=== PATIENT | male | born 1940 | race Asian ===

== ENCOUNTER → 2023-11-19 10:24 | Outpatient (REF) | payer OTHER, SELFPAY | LOC: RCS 10:24 | PROVIDERS: ATTENDING PHYSICIAN Internal Medicine Cardiovascular Disease; FAMILY PHYSICIAN Family Medicine | DX: I35.0 Nonrheumatic aortic (valve) stenosis (principal) | CPT/HCPCS: 93306 ==

== ENCOUNTER → 2023-12-17 06:35 | Outpatient (REF) | payer OTHER, SELFPAY | LOC: RAD 06:35 | PROVIDERS: ATTENDING PHYSICIAN Internal Medicine Gastroenterology; FAMILY PHYSICIAN Family Medicine | DX: K75.81 Nonalcoholic steatohepatitis (NASH) (principal); K74.60 Unspecified cirrhosis of liver | CPT/HCPCS: 76700; 93975 ==

== ENCOUNTER → 2023-12-21 09:15 | Outpatient (REF) | payer OTHER, SELFPAY | LOC: RAD 09:15 | PROVIDERS: ATTENDING PHYSICIAN Family Medicine | DX: M81.0 Age-related osteoporosis without current pathological fracture (principal) | CPT/HCPCS: 77080 ==

== ENCOUNTER → 2024-06-05 07:29 | Outpatient (REF) | payer OTHER, SELFPAY | LOC: RAD 07:29 | PROVIDERS: ATTENDING PHYSICIAN Internal Medicine Gastroenterology; FAMILY PHYSICIAN Family Medicine | DX: K74.69 Other cirrhosis of liver (principal); N18.31 Chronic kidney disease, stage 3a | CPT/HCPCS: 76700; 76775; 93975 ==

== ENCOUNTER → 2024-12-01 09:55 | Outpatient (REF) | payer OTHER, SELFPAY | LOC: RCS 09:55 | PROVIDERS: ATTENDING PHYSICIAN Internal Medicine Cardiovascular Disease; FAMILY PHYSICIAN Family Medicine | DX: I35.0 Nonrheumatic aortic (valve) stenosis (principal) | CPT/HCPCS: 93306 ==

== ENCOUNTER → 2024-12-23 06:36 | Outpatient (REF) | payer OTHER, SELFPAY | LOC: RAD 06:36 | PROVIDERS: ATTENDING PHYSICIAN Internal Medicine Gastroenterology; FAMILY PHYSICIAN Family Medicine | DX: K75.81 Nonalcoholic steatohepatitis (NASH) (principal); K74.60 Unspecified cirrhosis of liver | CPT/HCPCS: 76700; 93975 ==